=== PATIENT | male | born 1970 | race Caucasian/White ===

== ENCOUNTER 2025-03-03 18:56 | Emergency (ER) | payer OTHER, SELFPAY ==
[2025-03-03 18:56] VITALS: BP 165/102
[2025-03-03 19:35] LABS: Hematocrit 40.9 % (39.0-52.0); Hemoglobin 14.3 g/dL (13.0-18.0); Mean Corp Hgb Conc. 35.0 g/dL (33.0-37.0); Mean Corpuscular Volume 86.7 fL (80.0-94.0); Nucleated Red Blood Cells % 0 % (-); Platelet Count 268 10^3/uL (130-400); Red Cell Dist. Width 12.8 % (11.5-14.5)
[2025-03-03 19:45] LABS: INR 0.95; PT 13.0 Sec (11.4-14.6)
[2025-03-03 19:59] LABS: ALT (SGPT) 30 U/L (0-50); AST (SGOT) 31 U/L (17-59); Albumin 4.5 g/dl (3.5-5.0); Alkaline Phosphatase 43 U/L (38-126); Blood Urea Nitrogen 25 mg/dl (9-20); Calcium 8.8 mg/dl (8.4-10.2); Carbon Dioxide 22 mmol/L (22-30); Chloride 105 mmol/L (98-107); Glucose 100 mg/dl (70-99); Potassium 4.2 mmol/L (3.5-5.1); Sodium 135 mmol/L (135-145); Total Protein 7.1 g/dl (6.3-8.2); eGFR > 60.00
[2025-03-03 20:04] LABS: Troponin I < 0.012 ng/ml
[2025-03-03 21:55] VITALS: BP 158/100
[2025-03-03 22:53] VITALS: BP 146/101
[2025-03-03 22:54] VITALS: BMI 28.1
[2025-03-03 23:00] VITALS: BP 146/93
[2025-03-04] VITALS: BP 131/87
[2025-03-04 00:55] LABS: Troponin I < 0.012 ng/ml
[2025-03-04 01:25] LABS: D-Dimer 0.34 ug/mlFEU (0.00-0.50)
--- NOTE | 2025-03-04 02:13 | ED.GENMED ---
History of Present Illness
General
Chief Complaint: Cardiac Symptoms
Source: patient
Exam Limitations: none
Time Seen by Provider: 03/04/25 00:08
Nursing documentation reviewed up to this point in time: agreed with
History of Present Illness
History of Present Illness:
54-year-old male previous history of PE after surgery not currently anticoagulated presenting to the emergency department today with concerns of a chest pressure rating to the left arm lasted for about 10 to [address] prior to
arrival. Symptoms fully resolved at this point no associated shortness of breath nausea vomiting diaphoresis. No known heart history. No recent trauma surgery mobilization. Does have a remote history of a PE that was provoked.
Past History
Past History
ED Past Medical History: None
ED Past Surgical History: None
Social History
Personal:
Living: with family
Review of Systems
Review of Systems
Allergies reviewed?: Yes
All Other Systems: ROS reviewed and negative except as documented in HPI and ROS
Phy Exam
Physical Exam
Physical Exam:
GENERAL: Alert , in no apparent distress
EYE: pupils equal and reactive
NECK: Supple, no significant adenopathy.
ENT: o/p clr, mmm.
CARDIAC: Regular rate and rhythm .
LUNGS: Clear breath sounds bilaterally, no acute respiratory distress, no wheezes/rales/rhonchi
ABDOMEN: Soft, without focal tenderness, no r/g, no cvat
NEUROLOGICAL: Alert and oriented, no focal neuro deficits
SKIN: Warm and dry, skin intact.
MUSCULOSKELETAL: No edema, well perfused.
PSYCH: Normal and appropriate interaction.
Course
Orders/Labs/Results
Orders:
Orders
03/03/25 18:59
EKG [Electrocardiogram (*1)] Urgent
Reason for Study: Chest Pain
03/03/25 19:00
EKG- Treatment ONCE
03/03/25 19:05
Complete Blood Count/With Diff Urgent
Comprehensive Metabolic Panel Urgent
Prothrombin Time Urgent
Troponin I Urgent
03/03/25 23:57
Troponin I Urgent
03/04/25 00:17
EKG PRN [ECG as needed] As Directed
ECG as needed for:: Other reason
Other reason for ECG as needed:: repeat troponin
Additional Instructions:: repeat troponin
03/04/25 00:19
Chest [CR Chest - 2 Views ] Urgent
Comment:
Reason For Exam: chest pain
03/04/25 00:25
EKG [Electrocardiogram (*1)] Urgent
Reason for Study: Chest Pain
03/04/25 00:26
EKG- Treatment ONCE
03/04/25 00:32
D-Dimer Urgent
Comment: d dimer
Abnormal Lab Results
03/03/25
19:05
MPV 10.7 H fL
(7.4-10.4)
Absolute Monos (auto) 0.9 H 10^3/uL
(0.1-0.6)
Monocytes % 9.7 H %
(1.7-9.3)
BUN 25 H mg/dl
(9-20)
Glucose 100 H mg/dl
(70-99)
03/03/25 19:05
03/03/25 19:05
Vital Signs
Initial and Last Documented VS:
Initial Vital Signs
Temp Pulse Resp BP Pulse Ox
98.4 F 82 18 165/102 99
03/03/25 18:56 03/03/25 18:56 03/03/25 18:56 03/03/25 18:56 03/03/25 18:56
Last Documented Vital Signs
Temp Pulse Resp BP Pulse Ox
97.8 F 55 14 131/87 98
03/03/25 21:55 03/04/25 00:00 03/03/25 23:00 03/04/25 00:00 03/04/25 00:00
MDM/Problems Addressed
MDM/Problems Addressed:
54-year-old male presenting to the emergency department today with concerns for left-sided chest pressure lasting 15 minutes while [address] prior to arrival. Denies associated shortness of breath nausea vomiting or diaphoresis. No leg swelling,
recent trauma surgery mobilization. Does have remote history of PE. Not anticoagulated. Blood pressure slightly elevated on arrival otherwise vital signs are normal. Labs unremarkable D-dimer negative otherwise low risk for PE at this point
considering previous blood clot was provoked. Troponin negative x 2 EKG nonischemic chest x-ray without emergent findings. Patient very low risk at this point for immediate emergent pathology. Vies for close cardiology follow-up. Claims that
will follow-up with [facility]. Return precautions given.
*Pulse Oximetry
SaO2: 98
Oxygen Mode of Delivery: Room air
Patient hypoxic: no (98)
*Critical Care Note
Total Time (30-74mins, 75-104mins- exclusive of procedures): Not Applicable
ED Attending Note
-
Portions of this chart may have been created with voice recognition software.� Occasional wrong word or��sound alike� substitutions may have occurred due to the inherent limitations of voice recognition software.
Discharge Plan
Departure
Patient Disposition: Home (Routine Discharge)
Date of Disposition: 03/04/25
Time of Disposition: 02:15
Patient with high blood pressure during this ER visit?: No
Condition: Good
Covid-19: Not Applicable
Discharge Problem:
Chest pain
Instructions: Chest Pain (DC)
Prescriptions:
No Action
omega [id number] oil [Fish Oil] 1 EACH capsule
1 ea PO DAILY
red yeast rice 600 MG tablet
600 mg PO DAILY
Referrals:
Rinku Jiang MD [Active, Cardiology]
Shyam James CRNP [Family Provider, Family Practice]
Activity Restrictions/Additional Instructions:
You came to the emergency department today with concerns of chest discomfort. Here you had a reassuring assessment. Please follow closely with cardiology in the next 1 to 2 weeks. Return for any worsening, new or concerning symptoms.
Interventions
Interventions:
*Risk Screen - Suicide Last Done: 03/03/25 18:59
*General Assessment Last Done: 03/03/25 18:59
*Neglect/Abuse Screening Last Done: 03/03/25 18:59
*ED- Fall Risk Assessment Last Done: 03/03/25 22:55
*ED COVID-19 Vaccine History Last Done: 03/03/25 18:59
ED- Pulmonary Assessment Last Done: 03/03/25 22:55
ED- Cardiac Assessment Last Done: 03/03/25 22:55
Discharge Date and Time
Print Language: [id number]
== END 2025-03-04 02:31 | disposition home or self-care (01) ==
LOC: EMR 18:56
PROVIDERS: Emergency Medicine; Physician Assistant; EMERGENCY PHYSICIAN Student in an Organized Health Care Education/Training Program; FAMILY PHYSICIAN Nurse Practitioner Gerontology
DX: R07.89 Other chest pain (principal); Z86.711 Personal history of pulmonary embolism
CPT/HCPCS: 99284; 71046; 80053; 84484; 85025; 85379; 85610; 93005

== ENCOUNTER → 2025-07-02 13:08 | Outpatient (REF) | payer OTHER, SELFPAY | LOC: RAD 13:08 | PROVIDERS: ATTENDING PHYSICIAN Chiropractor; FAMILY PHYSICIAN Family Medicine | DX: M99.04 Segmental and somatic dysfunction of sacral region (principal); M99.05 Segmental and somatic dysfunction of pelvic region | CPT/HCPCS: 72170; 72220 ==